=== PATIENT | male | born 1990 | race Caucasian/White ===

== ENCOUNTER 2018-11-04 08:51 | Emergency (ER) | payer MEDICAID, OTHER ==
[~2018-11-04] VITALS: Ht 165.1 cm; Wt 104.3 kg
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
--- NOTE | 2018-11-04 09:01 | NUR ---
DR SALVADOR AT BEDSIDE
[2018-11-04 09:11] VITALS: BP 124/76
--- NOTE | 2018-11-04 09:11 | NUR ---
Patient discharged to home in stable condition. Written and verbal after care instructions given. Patient verbalizes understanding of instruction.
== END 2018-11-04 09:13 | disposition left against medical advice (07) ==
LOC: ER 08:57
DX: M54.5 Low back pain (principal); W01.0XXA Fall on same level from slipping, tripping and stumbling without subsequent striking against object, initial encounter; Y93.89 Activity, other specified; Y92.89 Other specified places as the place of occurrence of the external cause; Y99.8 Other external cause status

== ENCOUNTER 2018-12-09 18:37 | Emergency (ER) | payer MEDICAID, OTHER ==
[~2018-12-09] VITALS: Ht 167.6 cm; Wt 104.3 kg
[2018-12-09 19:22] VITALS: BP 131/87
== END 2018-12-09 21:55 | disposition home or self-care (01) ==
LOC: ER 18:37
DX: M25.561 Pain in right knee (principal); Z98.890 Other specified postprocedural states; W01.0XXA Fall on same level from slipping, tripping and stumbling without subsequent striking against object, initial encounter; Y93.89 Activity, other specified; Y92.89 Other specified places as the place of occurrence of the external cause; Y99.8 Other external cause status
CPT/HCPCS: 73564-TC

== ENCOUNTER 2022-07-10 18:48 | Emergency (ER) | payer OTHER ==
[~2022-07-10] VITALS: Ht 177.8 cm; Wt 99.8 kg
[2022-07-10 20:36] VITALS: BP 153/90
[2022-07-10] MEDS ORDERED: FAMO-131 PO (21:32)
[2022-07-10] MEDS ORDERED: ALBU18HF2 INH (21:32)
== END 2022-07-10 21:57 | disposition home or self-care (01) ==
LOC: ER 18:50
DX: K21.9 Gastro-esophageal reflux disease without esophagitis (principal)
CPT/HCPCS: 71045-TC

== ENCOUNTER 2022-12-14 20:25 | Emergency (ER) | payer OTHER ==
[~2022-12-14] VITALS: Ht 167.6 cm; Wt 113.4 kg
[~2022-12-14 20:25] MED LIST: ALBU18HF2 INH; FAMO-131 PO
[2022-12-14 21:46] VITALS: BP 149/91
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
--- NOTE | 2022-12-14 22:37 | NUR ---
ANGELA REESE AT PT'S BEDSIDE
--- NOTE | 2022-12-15 00:35 | NUR ---
Patient discharged to home in stable condition. Written and verbal after care instructions given. Patient verbalizes understanding of instruction.
== END 2022-12-15 00:36 | disposition home or self-care (01) ==
LOC: ER 20:39
DX: S80.02XA Contusion of left knee, initial encounter (principal); Z79.899 Other long term (current) drug therapy; W22.8XXA Striking against or struck by other objects, initial encounter; Y93.89 Activity, other specified; Y92.89 Other specified places as the place of occurrence of the external cause; Y99.8 Other external cause status
CPT/HCPCS: 73564-TC

== ENCOUNTER 2023-11-24 19:11 | Emergency (ER) | payer OTHER ==
[~2023-11-24] VITALS: Ht 170.2 cm; Wt 113.4 kg
[2023-11-24 19:54] VITALS: BP 133/84; TEMP 98; O2SAT 99
[2023-11-24] MEDS ORDERED: ACET-2605 PO (21:11)
[2023-11-24] MEDS ORDERED: IBUP-1955 PO (21:11)
== END 2023-11-24 21:40 | disposition home or self-care (01) ==
LOC: ER 19:13
DX: M25.562 Pain in left knee (principal); Z60.2 Problems related to living alone
CPT/HCPCS: 73564-TC

== ENCOUNTER 2025-04-27 18:27 | Emergency (ER) | payer OTHER ==
[~2025-04-27] VITALS: Ht 167.6 cm; Wt 113.4 kg
[~2025-04-27 18:27] MED LIST changes: +ACET-2605 PO; +IBUP-1955 PO
[2025-04-27 18:41] VITALS: BP 146/111; TEMP 98.4
[2025-04-27] MEDS ORDERED: TRIA60LO8 TP (19:05)
[2025-04-27] MEDS ORDERED: PRED20TA PO (19:05)
[2025-04-27 20:01] VITALS: O2SAT 99
== END 2025-04-27 20:01 | disposition home or self-care (01) ==
LOC: ER 18:33
DX: L25.9 Unspecified contact dermatitis, unspecified cause (principal)